=== PATIENT | female | born 1985 | race Caucasian/White ===

== ENCOUNTER 2018-03-20 22:23 | Emergency (ER) | payer MEDICAID, OTHER, SELFPAY ==
[~2018-03-20] VITALS: Ht 157.5 cm; Wt 72.7 kg
[2018-03-20] MEDS ORDERED: ONDANSETRON 2MG/ML, 2ML IVPush ONE (22:30)
[2018-03-20] MEDS ORDERED: SODIUM CHLORIDE FLUSH 10ML SYR IVF ONE (22:30)
[2018-03-20] MEDS ORDERED: ONDANSETRON 2MG/ML, 2ML ONE (22:50)
[2018-03-20] MEDS ORDERED: MORPHINE SULFATE 4 MG/ML, 1ML ONE (22:51)
[2018-03-20 22:53] LABS: MICROSCOPIC AUTO
[2018-03-20 22:54] LABS: CULTURE INDICATED? YES
[2018-03-20 23:00] LABS: CLUE CELLS NONE SEEN (NONE SEEN); WET PREP WBCS MANY (FEW)
[2018-03-20] MEDS ORDERED: PLEASE ENTER ALLERGIES MC SCH (23:00)
[2018-03-20] MEDS: MORPHINE SULFATE 4 MG/ML, 1ML IVPush PRN (23:04)
[2018-03-20 23:05] LABS: BASOPHILS # (AUTO) 0.06 x10^3/uL (0-0.1); BASOPHILS % (AUTO) 0 % (0-1); EOSINOPHILS # (AUTO) 0.18 x10^3/uL (0-0.4); EOSINOPHILS % (AUTO) 1 % (1-7); LYMPHOCYTES # (AUTO) 2.05 x10^3/uL (1-3.4); LYMPHOCYTES % (AUTO) 14 % (22-44); MD NO; MEAN CORPUSCULAR HEMOGLOBIN 32.3 pg (27.0-34.8); MEAN CORPUSCULAR HGB CONC 33.6 g/dL (32.4-35.8); MEAN CORPUSCULAR VOLUME 96.3 fL (80-100); MEAN PLATELET VOLUME 8.2 fL (7.4-10.4); MONOCYTES # (AUTO) 0.72 x10^3/uL (0.2-0.8); MONOCYTES % (AUTO) 5 % (2-9); NEUTROPHILS # (AUTO) 12.09 x10^3/uL (1.8-6.8); NEUTROPHILS % (AUTO) 80 % (42-75); PLATELET COUNT 243 x10^3/uL (130-400); RED BLOOD COUNT 4.86 x10^6/uL (3.82-5.3); RED CELL DISTRIBUTION WIDTH 13.8 % (9.6-15.2)
[2018-03-20 23:15] LABS: ALANINE AMINOTRANSFERASE 68 U/L (12-78); ALBUMIN 3.8 g/dL (3.4-5.0); ANION GAP 8 mmol/L (5-15); CALCIUM 9.4 mg/dL (8.5-10.1); CHLORIDE 104 mmol/L (98-107); CREATININE 1.05 mg/dL (0.55-1.02)
[2018-03-20 23:20] LABS: ALKALINE PHOSPHATASE 85 U/L (45-117); BILIRUBIN,TOTAL 0.2 mg/dL (0.2-1.0); TOTAL PROTEIN 7.8 g/dL (6.4-8.2)
[2018-03-20] MEDS ORDERED: CEFTRIAXONE PMX 1GM/50ML 50 ML IV ONE (23:30)
[2018-03-20] MEDS ORDERED: SODIUM CHLORIDE 0.9% 1,000ML IVBOLUS ONE (23:30)
[2018-03-20] MEDS ORDERED: CEFTRIAXONE PMX 1GM/50ML 50 ML ONE (23:44)
[2018-03-20 23:51] LABS: MICROSCOPIC INDICATED
[2018-03-20 23:52] LABS: CULTURE INDICATED? YES
[2018-03-21] MEDS ORDERED: MORPHINE SULFATE 4 MG/ML, 1ML ONE (00:02)
[2018-03-21] MEDS: MORPHINE SULFATE 4 MG/ML, 1ML IVPush PRN (00:14)
[2018-03-21 01:54] VITALS: BP 102/55
== END 2018-03-21 02:00 | disposition home or self-care (01) ==
LOC: ED 22:34
DX: N30.01 Acute cystitis with hematuria (principal); A59.01 Trichomonal vulvovaginitis
CPT/HCPCS: 36415; 74177; 80053; 81001; 83605; 83690; 84703; 85025; 87040; 87077; 87086; 87186; 87210; 87491; 87591; 87808; 99285; J0696; J2405; J7030

== ENCOUNTER 2019-03-16 20:49 | Emergency (ER) | payer MEDICAID ==
[~2019-03-16] VITALS: Ht 157.5 cm; Wt 88.9 kg
[2019-03-16] MEDS ORDERED: MORPHINE SULFATE 4 MG/ML, 1ML IVPush PRN (21:30)
[2019-03-16] MEDS ORDERED: ONDANSETRON 2MG/ML, 2ML IVPush ONE (21:30)
[2019-03-16] MEDS ORDERED: ONDANSETRON 2MG/ML, 2ML ONE (21:56)
[2019-03-16] MEDS ORDERED: MORPHINE SULFATE 4 MG/ML, 1ML ONE (21:57)
[2019-03-16 22:03] LABS: BASOPHILS # (AUTO) 0.05 x10^3/uL (0-0.1); BASOPHILS % (AUTO) 1 % (0-1); EOSINOPHILS # (AUTO) 0.69 x10^3/uL (0-0.4); EOSINOPHILS % (AUTO) 8 % (1-7); LYMPHOCYTES # (AUTO) 2.67 x10^3/uL (1-3.4); LYMPHOCYTES % (AUTO) 33 % (22-44); MD NO; MEAN CORPUSCULAR HEMOGLOBIN 30.6 pg (27.0-34.8); MEAN CORPUSCULAR HGB CONC 33.6 g/dL (32.4-35.8); MEAN CORPUSCULAR VOLUME 91.3 fL (80-100); MEAN PLATELET VOLUME 8.1 fL (7.4-10.4); MONOCYTES # (AUTO) 0.52 x10^3/uL (0.2-0.8); MONOCYTES % (AUTO) 6 % (2-9); NEUTROPHILS # (AUTO) 4.26 x10^3/uL (1.8-6.8); NEUTROPHILS % (AUTO) 52 % (42-75); PLATELET COUNT 259 x10^3/uL (130-400); RED BLOOD COUNT 4.35 x10^6/uL (3.82-5.3); RED CELL DISTRIBUTION WIDTH 12.9 % (9.6-15.2)
--- NOTE | 2019-03-16 22:03 | NUR ---
PT PRESENTED TO ED WITH LEFT LOWER EXTREMITY REDNESS AND SWELLING. PT HAD SURGERY 1 MONTH AGO ON LEFT TIBIA/FIB FRACTURE AND THEN DEVELOPED CELLULITIS. PT A&OX4. PT PLACED IN ROOM AND IV STARTED. BLOO DRAWN. MEDS GIVEN AND THEN PT TAKEN TO RADIOLOGY.
[2019-03-16 22:08] LABS: HCT (SEDRATE) 39.7 % (34.6-47.8)
[2019-03-16 22:18] LABS: CHLORIDE 111 mmol/L (98-107)
[2019-03-16 22:19] LABS: ALANINE AMINOTRANSFERASE 31 U/L (12-78); ALBUMIN 3.8 g/dL (3.4-5.0); ANION GAP 8 mmol/L (5-15); C-REACTIVE PROTEIN, QUANT 0.34 mg/dL (0.02-0.49); CALCIUM 8.7 mg/dL (8.5-10.1)
[2019-03-16 22:21] LABS: ALKALINE PHOSPHATASE 105 U/L (45-117); BILIRUBIN,TOTAL 0.4 mg/dL (0.2-1.0); TOTAL PROTEIN 7.9 g/dL (6.4-8.2)
[2019-03-16 22:44] VITALS: BP 143/83
[2019-03-16] MEDS ORDERED: POTASSIUM CHLORIDE 20 MEQ TAB.ER.PRT ONE (22:48)
[2019-03-16] MEDS ORDERED: POTASSIUM CHLORIDE 20 MEQ TAB.ER.PRT PO ONE (23:00)
== END 2019-03-16 22:56 | disposition home or self-care (01) ==
LOC: ED 22:27
DX: L03.116 Cellulitis of left lower limb (principal); L76.82 Other postprocedural complications of skin and subcutaneous tissue
CPT/HCPCS: 36415; 73610; 80053; 83605; 84145; 85025; 85651; 86140; 93971; 96374; 96375; 99284; J2270; J2405

== ENCOUNTER 2019-03-22 19:00 | Emergency (ER) | payer MEDICAID ==
[~2019-03-22] VITALS: Ht 152.4 cm; Wt 87.1 kg
--- NOTE | 2019-03-22 19:14 | NUR ---
PT PRESENTED WITH C/O LEFT ANKLE PAIN, REDNESS AND SWELLING. PT STATED SHE HAD SURGERY ON HER LEFT ANKLE SIX WEEKS AGO. PT REPORTS SHE WAS ON ABX FOR CELLULITIS BUT STOPPED THEM BECAUSE SHE HAD AN REACTION TO THEM. MONITORS APPLIED, SIDERAILS UP X2, CALL LIGHT WITHIN REACH. PA AT BEDSIDE HECTOR GIMENEZ
[2019-03-22 19:20] VITALS: BP 142/93
[2019-03-22] MEDS ORDERED: HYDROcodone/APAP 5/325 TABLET ONE (19:28)
[2019-03-22] MEDS ORDERED: HYDROcodone/APAP 5/325 TABLET PO ONE (19:30)
--- NOTE | 2019-03-22 19:33 | NUR ---
PT MEDICATED PER NOV, PT'S BOYFRIEND TO DRIVE HER HOME
== END 2019-03-22 19:39 | disposition home or self-care (01) ==
LOC: ED 19:33
DX: L03.116 Cellulitis of left lower limb (principal); M25.572 Pain in left ankle and joints of left foot; F17.210 Nicotine dependence, cigarettes, uncomplicated
CPT/HCPCS: 99283

== ENCOUNTER 2019-11-05 22:33 | Emergency (ER) | payer MEDICAID ==
[~2019-11-05] VITALS: Ht 160 cm; Wt 121.0 kg
[2019-11-05 22:37] VITALS: BP 143/100
--- NOTE | 2019-11-05 22:58 | NUR ---
Pt here for possible tampon stuck in vagina. Does not recall if removed. Pt reports she has a foul smell coming from her vagina. Pt reports no drainage but reprots pain. Period 4 days ago.
[2019-11-05] MEDS ORDERED: CEFTRIAXONE 250 MG ONE (23:08)
[2019-11-05] MEDS ORDERED: LIDOCAINE-MPF 1%, 2ML ONE (23:08)
[2019-11-05] MEDS ORDERED: AZITHROMYCIN 500 MG TABLET ONE (23:08)
[2019-11-05 23:12] LABS: CLUE CELLS PRESENT (NONE SEEN); WET PREP WBCS NONE SEEN (FEW)
--- NOTE | 2019-11-05 23:21 | NUR ---
Patient/Caregiver given discharge instructions and they have confirmed that they understand the instructions. Patient ambulatory with steady gait. PT MEDICATED PRIOR TO DC.
[2019-11-05] MEDS ORDERED: AZITHROMYCIN 500 MG TABLET PO ONE (23:30)
[2019-11-05] MEDS ORDERED: CEFTRIAXONE 250 MG IM ONE (23:30)
== END 2019-11-05 23:23 | disposition home or self-care (01) ==
LOC: ED 23:15
DX: N76.0 Acute vaginitis (principal); N72 Inflammatory disease of cervix uteri; F17.210 Nicotine dependence, cigarettes, uncomplicated
CPT/HCPCS: 87210; 87491; 87591; 87808; 96372; 99283; J0696